=== PATIENT | female | born 1995 | race Caucasian/White ===

== ENCOUNTER 2017-05-19 18:23 | Emergency (ER) | payer BC, OTHER ==
[~2017-05-19] VITALS: Ht 162.6 cm; Wt 64.0 kg
[2017-05-19 18:33] VITALS: Ht 162.6 cm; Wt 64.0 kg
[2017-05-19] MEDS ORDERED: SOD CHLORIDE 0.9% 1,000 ML IV STA (19:30)
--- NOTE | 2017-05-19 19:59 | ERD ---
ER Documentation Chief Complaint Date/Time DATE: 05/19/17 TIME: 19:59 Chief Complaint states feels "sick", can't explain further HPI 22-year-old female with a history of intellectual delay brought in by her cousin for acting abnormally. She told her cousin she was not feeling well and that she has not had a bowel movement in 4 days. Her cousin brought her in for evaluation. However the patient is not answering any of my questions. She will only answer if her mother is on the phone. Her mother lives over 4 hours away. Patient is reportedly visiting her aunt with her cousin. ROS All systems reviewed and are negative except as per history of present illness. Medications Home Meds No Active Prescriptions or Reported Meds Allergies Allergies: Coded Allergies: No Known Drug Allergies (Verified Allergy, Unknown, 05/19/17) PMhx/Soc Medical and Surgical Hx: pt denies Surgical Hx Hx Miscellaneous Medical Probl: Yes (PT SUSTAINED HEAD INJURY CHILD. SHOWS SIGNS OF DEVELOPMENTAL DELAY.) Hx Alcohol Use: No Hx Substance Use: No Hx Tobacco Use: No Smoking Status: Never smoker FmHx Family History: other (Unable to obtain) Physical Exam Vitals Vital Signs Date Time Temp Pulse Resp B/P Pulse Ox O2 Delivery O2 Flow Rate FiO2 05/19/17 20:08 99.7 106 20 124/82 100 Room Air 05/19/17 18:41 99.7 118 20 132/86 100 Room Air 05/19/17 18:33 99.7 115 20 126/75 99 Physical Exam Const: Well-appearing, no apparent distress, awake and alert, not answering any questions but nods Head: Atraumatic Eyes: Normal Conjunctiva ENT: Normal External Ears, Nose and Mouth. Neck: No obvious swelling Resp: No respiratory distress clear to auscultation bilaterally Cardio: Regular rate and rhythm, no murmurs Abd: Pushes my hand away when I try to do an abdominal exam saying "no" Skin: No petechiae or rashes Ext: No cyanosis, or edema Neur: Awake and alert, moving all extremities, no obvious facial asymmetry, answering questions selectively with yes and no answers Psych: Strange affect Results 24 hrs Current Medications Medications (Trade) Dose Ordered Sig/Jose Route PRN Reason Start Time Stop Time Status Last Admin Dose Admin Sodium Chloride (NS) 1,000 ml @ 1,000 mls/hr Q1H STAT IV 05/19/17 19:30 05/19/17 20:29 DC Procedures/MDM Labs, IV, Accu-Chek were all ordered. However the patient was refusing to have any of the tests done. The only thing she agreed to is an EKG which did not show any significant abnormalities, only an incomplete right bundle branch block which is nonspecific. She was noted to be mildly tachycardic, which may be due to dehydration, anxiety, or other more serious etiology. I had cousin call the patient's mother who spoke with the patient. However the patient continued to refuse any other tests or exam. Per the mother, when she talks to the patient, this is her normal mental status. I advised mom that I will discharge her but there is a risk of a serious medical emergency. If she leaves right now without any further testing, I cannot guarantee that she will not get worse when she leaves. Mother understands the risks. A bakery supervisor was used to speak with the mother. Patient was discharged in stable condition. Departure Diagnosis: Primary Impression: Altered mental status Altered mental status type: unspecified Qualified Code: R41.82 - Altered mental status, unspecified altered mental status type Condition: FATOUAMTA Delvalle MD May 19, 2017 19:59
[2017-05-19 20:08] VITALS: BP 124/82; PULSE 106; RESP 20; TEMP 99.7
== END 2017-05-19 20:12 | disposition home or self-care (01) ==
LOC: E/R 18:23
DX: R41.82 Altered mental status, unspecified (principal); R94.31 Abnormal electrocardiogram [ECG] [EKG]
CPT/HCPCS: 93005; J7030